=== PATIENT | female | born 1990 | race Caucasian/White ===

== ENCOUNTER → 2022-08-14 | Outpatient (CLI) | payer OTHER ==
[2022-08-14 16:59] LABS: BASO # 0.1 10^3/uL (0.0-0.2); BASO % 0.6 % (0.0-1.0); EOS # 0.2 10^3/uL (0.0-0.5); EOS % 1.9 % (0.0-3.0); HEMATOCRIT 41.2 % (36.0-47.0); HEMOGLOBIN 12.9 g/dl (12.0-15.5); LYMPH # 2.5 10^3/uL (1.5-5.0); LYMPH % 31.5 % (24.0-44.0); MEAN CORPUSCULAR HEMOGLOBIN 27.9 pg (27.0-33.0); MEAN CORPUSCULAR HGB CONC 31.3 g/dl (32.0-36.5); MEAN CORPUSCULAR VOLUME 89.2 fl (80.0-96.0); MONO # 0.6 10^3/uL (0.0-0.8); MONO % 7.9 % (2.0-8.0); NEUTROPHILS # 4.6 10^3/uL (1.5-8.5); NEUTROPHILS % 57.7 % (36.0-66.0); PLATELET COUNT, AUTOMATED 329 10^3/uL (150-450); RED BLOOD COUNT 4.62 10^6/uL (4.00-5.40)
[2022-08-14 17:04] LABS: ALBUMIN 3.7 G/DL (3.2-5.2); ALKALINE PHOSPHATASE 175 U/L (46-116); ALT/SGPT 25 U/L (7.0-40); AST/SGOT 21 U/L (<34); BILIRUBIN,TOTAL 0.7 MG/DL (0.3-1.2); BLOOD UREA NITROGEN 13 MG/DL (9-23); CALCIUM LEVEL 9.1 MG/DL (8.5-10.1); CARBON DIOXIDE LEVEL 28 MMOL/L (20-31); CHLORIDE LEVEL 104 MMOL/L (98-107); CHOLESTEROL LEVEL 176 MG/DL (<200); CHOLESTEROL RISK RATIO 2.96 (<5); CREATININE FOR GFR 0.63 MG/DL (0.55-1.30); FREE T4 0.92 NG/DL (0.89-1.76); GLOMERULAR FILTRATION RATE > 60.0 (>60); GLUCOSE, FASTING 107 MG/DL (60-100); HDL CHOLESTEROL 59.4 MG/DL (>40); LDL CHOLESTEROL 94.2 MG/DL (<100); NON-HDL-C 117 MG/DL; POTASSIUM SERUM 3.9 MMOL/L (3.5-5.1); SODIUM LEVEL 140 MMOL/L (136-145); THYROID STIMULATING HORMONE 2.948 uIU/ML (0.55-4.78); TOTAL PROTEIN 7.2 G/DL (5.7-8.2); TRIGLYCERIDES LEVEL 112 MG/DL (<150)
[2022-08-14 18:05] LABS: HEMOGLOBIN A1c 5.3 % (4.0-6.0)
== END ==
LOC: M WUC 13:10
PROVIDERS: ATTEND Physician Assistant
DX: Z13.29 Encounter for screening for other suspected endocrine disorder (principal); Z13.220 Encounter for screening for lipoid disorders

== ENCOUNTER → 2022-10-16 | Outpatient (CLI) | payer OTHER | LOC: M PLARAD 13:35 | PROVIDERS: ATTEND Physician Assistant | DX: M47.12 Other spondylosis with myelopathy, cervical region (principal); M47.16 Other spondylosis with myelopathy, lumbar region; M51.06 Intervertebral disc disorders with myelopathy, lumbar region ==

== ENCOUNTER → 2022-12-01 | Outpatient (CLI) | payer OTHER | LOC: M LAB 12:05 | PROVIDERS: ATTEND Allergy & Immunology Allergy | DX: J31.0 Chronic rhinitis (principal); T78.1XXA Other adverse food reactions, not elsewhere classified, initial encounter ==

== ENCOUNTER → 2022-12-15 | Outpatient (CLI) | payer OTHER | LOC: M RAD 06:35 | PROVIDERS: ATTEND Internal Medicine Gastroenterology | DX: K21.9 Gastro-esophageal reflux disease without esophagitis (principal) ==

== ENCOUNTER → 2023-01-20 | Day surgery (SDC) | payer OTHER ==
[~2023-01-20] VITALS: Ht 165.1 cm; Wt 87.1 kg
[~2023-01-20] MED LIST: ADV250INH INH; BACL10TA2 PO; BUSP5TA PO; CETI-24 PO; FLON1SPR; FLUO40CA PO; HYDR-643 PO; IBUP-1428 PO; LIDOCAINE 2% 100MG/5ML SDV (FOR ANES.) As Ordered ONE; NEXI40CA PO; NS 1,000 ML IV ONE; ONDA-84 PO; PEPC1TAB5 PO; PRENTAB53 PO; VALT500T PO; VENTAER INH; fentaNYL 100 MCG/2 ML INJECTION As Ordered ONE; propofoL 200 MG/20 ML VIAL As Ordered ONE
[2023-01-20 12:16] VITALS: TEMP 96.2
[2023-01-20 12:35] VITALS: BP 135/90; O2SAT 96
== END | disposition home or self-care (01) ==
LOC: M OPP 09:31
PROVIDERS: ATTEND Internal Medicine Gastroenterology
DX: K63.5 Polyp of colon (principal); K64.4 Residual hemorrhoidal skin tags; K64.8 Other hemorrhoids; K29.70 Gastritis, unspecified, without bleeding; R10.13 Epigastric pain; Z79.1 Long term (current) use of non-steroidal anti-inflammatories (NSAID); Z79.51 Long term (current) use of inhaled steroids; Z79.52 Long term (current) use of systemic steroids; Z88.8 Allergy status to other drugs, medicaments and biological substances
CPT/HCPCS: 43239; 45385; 88305; J3010